=== PATIENT | female | born 1935 | race Caucasian/White ===

== ENCOUNTER 2020-09-15 08:44 | Outpatient (CLI) | payer OTHER | END 2020-09-15 08:49 | disposition home or self-care (01) | LOC: TOM 08:44 | PROVIDERS: ATTEND Internal Medicine Gastroenterology | DX: K57.90 Diverticulosis of intestine, part unspecified, without perforation or abscess without bleeding (principal); K44.9 Diaphragmatic hernia without obstruction or gangrene; K56.51 Intestinal adhesions [bands], with partial obstruction; R19.5 Other fecal abnormalities; I70.8 Atherosclerosis of other arteries ==